=== PATIENT | male | born 1985 | race Caucasian/White ===

== ENCOUNTER 2018-03-22 12:14 | Day surgery (SDC) | payer OTHER ==
[~2018-03-22] VITALS: Ht 170.2 cm; Wt 67.8 kg
[~2018-03-22 12:14] MED LIST: OXYC-302 PO
[2018-03-22] MEDS ORDERED: LACTATED RINGERS 1,000 ML IV SCH (12:55)
[2018-03-22 13:17] VITALS: BP 146/87
[2018-03-22] MEDS ORDERED: AMOXICILLIN PO (13:17)
[2018-03-22] MEDS ORDERED: FENTANYL PF 100 MCG/2ML ONE (13:59)
[2018-03-22] MEDS ORDERED: MIDAZOLAM 1 MG/ML, 2ML ONE (13:59)
[2018-03-22] MEDS ORDERED: DEXAMETHASONE 4 MG/ML, 1ML ONE (13:59)
[2018-03-22] MEDS ORDERED: METOCLOPRAMIDE 5 MG/ML, 2ML ONE (14:00)
[2018-03-22] MEDS ORDERED: ONDANSETRON 2MG/ML, 2ML ONE (14:00)
[2018-03-22] MEDS ORDERED: PROPOFOL 10 MG/ML, 20ML ONE (14:01)
[2018-03-22] MEDS ORDERED: LIDOCAINE-MPF 2% ,5ML ONE (14:01)
[2018-03-22] MEDS ORDERED: KETOROLAC 30 MG/1 ML ONE (14:03)
[2018-03-22] MEDS ORDERED: GLYCOPYRROLATE 0.4 MG/2 ML, 2ML ONE (14:14)
[2018-03-22] MEDS ORDERED: BUPIVACAINE/PF 0.5% ONE (14:21)
[2018-03-22] MEDS ORDERED: HYDROmorphone 1 MG/ML, 1ML IV PRN (15:00)
[2018-03-22] MEDS ORDERED: MIDAZOLAM 1 MG/ML, 2ML IV PRN (15:00)
[2018-03-22] MEDS ORDERED: FENTANYL PF 100 MCG/2ML IV PRN (15:00)
[2018-03-22] MEDS ORDERED: ONDANSETRON 2MG/ML, 2ML IVPush PRN (15:00)
[2018-03-22] MEDS ORDERED: OXYcodone 5 MG/5 ML ORAL.SOL UDC PO PRN (15:00)
[2018-03-22] MEDS ORDERED: LABETALOL 5MG/ML, 20ML IV PRN (15:00)
[2018-03-22] MEDS ORDERED: MEPERIDINE/PF 25MG/0.5ML IVPush PRN (15:00)
[2018-03-22] MEDS ORDERED: OXYcodone 5 MG/5 ML ORAL.SOL UDC ONE (15:06)
== END 2018-03-22 16:55 | disposition home or self-care (01) ==
LOC: OUT 12:14
PROVIDERS: ATTEND Surgery
DX: K61.1 Rectal abscess (principal); Z72.89 Other problems related to lifestyle; Z79.899 Other long term (current) drug therapy
CPT/HCPCS: 87070; 87075; 87147; 87186; 87205; J1100; J1885; J2250; J2405; J2704; J3010; J3490; J2765; J7120